=== PATIENT | female | born 2000 | race Caucasian/White ===

== ENCOUNTER 2022-02-28 08:21 | Emergency (ER) | payer OTHER ==
--- NOTE | 2022-02-28 08:55 | ED Physician Documentation ---
PD HPI NVD - Stated complaint Stated Complaint: N/V - Chief complaint Chief Complaint: Abd Pain - History obtained from History obtained from: Patient - History of Present Illness Timing - onset: How many months ago (1 to 12/02) Timing - duration: Months Timing - details: Gradual onset, Still present, Waxing and waning Associated symptoms: No: Fever, Abdominal pain, Dysuria, Vaginal bleeding, Vaginal dc Contributing factors: Other (11 weeks . Had initial visit at 8 weeks [place], but then moved here and not had [employer] appt as yet. Having nausea and less appetite the past month and more the past severral days, with frequent vomtiing. No hematemesis.). No: Sick contact, Bad food Improved by: No: Vomiting Worsened by: Eating Similar symptoms before: Has not had sx before Recently seen: Clinic (3 weeks ago with Rx for ZOfran given that lasted just a few days.) Review of Systems Constitutional: denies: Fever, Chills Nose: denies: Rhinorrhea / runny nose, Congestion Throat: denies: Sore throat Respiratory: denies: Cough GI: reports: Nausea, Vomiting. denies: Abdominal Pain, Diarrhea : reports: Now EGA (11). denies: Dysuria, Frequency, Discharge, Vaginal bleeding Neurologic: reports: Generalized weakness. denies: Near syncope PD PAST MEDICAL HISTORY - Past Medical History Cardiovascular: None Respiratory: None Endocrine/Autoimmune: None - Present Medications Home Medications: Ambulatory Orders Medication Instructions Recorded Confirmed Doxylamine Succinate [Unisom Sleep 25 mg PO BID #60 tablet 02/28/22 Aid] Famotidine [Pepcid] 20 mg PO DAILY 30 Days #30 tablet 02/28/22 Ondansetron Odt [Zofran] 4 mg TL Q6H PRN #25 tablet 02/28/22 Pyridoxine HCl (Vitamin B6) 250 mg PO BID #60 tablet 02/28/22 [Vitamin B-6] - Allergies Allergies/Adverse Reactions: Allergies Allergy/AdvReac Type Severity Reaction Status Date / Time No Known Drug Allergies Allergy Verified 02/28/22 08:27 PD ED PE NORMAL - Vitals Vital signs reviewed: Yes - General General: Alert and oriented X 3, No acute distress, Well developed/nourished - Neck Neck: Supple, no meningeal sign, No adenopathy - Cardiac Cardiac: No murmur. No: RRR (regular but tachycardic) - Respiratory Respiratory: Clear bilaterally - Abdomen Abdomen: Soft, Non tender, Other (gravid to about estimated EGA with fundus just felt above symphysis. Bedside U?S showing normal IUP size c/w dates with good FHB at 130 and movement. ) Results - Vitals Vitals: Vital Signs - 24 hr 02/28/22 02/28/22 10:31 11:15 Heart Rate 63 83 Respiratory 14 16 Rate Blood Pressure 125/78 123/69 O2 Saturation 100 100 Oxygen O2 Source Room air - Labs Labs: Laboratory Tests 02/28/22 02/28/22 02/28/22 08:31 09:21 09:21 WBC 10.9 H RBC 4.69 Hgb 13.3 Hct 39.4 MCV 84.0 MCH 28.4 MCHC 33.8 RDW 12.6 Plt Count 353 MPV 9.1 Neut # (Auto) 8.6 H Lymph # (Auto) 1.5 Josephine # (Auto) 0.7 Eos # (Auto) 0.0 Baso # (Auto) 0.0 Absolute Nucleated RBC 0.00 Nucleated RBC % 0.0 Sodium 133 L Potassium 3.3 L Chloride 99 L Carbon Dioxide 22 Anion Gap 12.0 BUN 9 Creatinine 0.7 Estimated GFR (MDRD) 108 Glucose 96 Calcium 9.3 Magnesium 2.0 Total Bilirubin 0.6 AST 18 ALT 18 Alkaline Phosphatase 59 Total Protein 8.9 H Albumin 4.2 Globulin 4.7 H Albumin/Globulin Ratio 0.9 L Lipase 32 Urine Color YELLOW Urine Clarity CLOUDY Urine pH 6.0 Ur Specific Blanco 1.025 Urine Protein 30 H Urine Glucose (UA) NEGATIVE Urine Ketones >=80 H Urine Occult Blood SMALL H Urine Nitrite NEGATIVE Urine Bilirubin NEGATIVE Urine Urobilinogen 0.2 (NORMAL) Ur Leukocyte Esterase SMALL H Urine RBC 0-5 Urine WBC 4-5 Ur Squamous Epith Cells MANY Squamous H Urine Bacteria Many H Ur Microscopic Review INDICATED Urine Culture Comments NOT INDICATED PD MEDICAL DECISION MAKING - ED course Complexity details: reviewed results (bedside U/S showing IUP with size c/w dates and good FHB and movement. ), re-evaluated patient (she feels much better with fluids and meds in ER.), considered differential (seems hyperemesis with . May have element of gastritis from persistent vomiting. ), d/w patient Departure - Departure Disposition: 01 Home, Self Care Clinical Impression: Nausea and vomiting in prior to 22 weeks gestation, Dehydration Qualifiers: Weeks of gestation: 11 weeks Qualified Code(s): Z3A.11 - 11 weeks gestation of Condition: Stable Record reviewed to determine appropriate education?: Yes Instructions: ED Preg Morning Sickness Follow-Up: [facility] [Provider Group] [facility] [Provider Group] Prescriptions: Famotidine [Pepcid] 20 mg PO DAILY 30 Days #30 tablet Doxylamine Succinate [Unisom Sleep Aid] 25 mg PO BID #60 tablet Pyridoxine HCl (Vitamin B6) [Vitamin B-6] 250 mg PO BID #60 tablet Ondansetron Odt [Zofran] 4 mg TL Q6H PRN #25 tablet PRN Reason: Nausea / Vomiting Comments: Small frequent fluids and bland food initially. Progress diet as tolerated. Vitamin B6 twice daily for the next several weeks to a month. Use doxylamine twice daily for nausea. To that add ondansetron every 4-6 hours if needed for worse nausea and vomiting. Your stomach likely has irritation from the persistent symptoms so add famotidine acid reducing medicine daily for the next month. These are all okay in and are actually considered first-line treatments by the [employer]COG ([employer] OF specialty group). [place] and otherwise [employer] clinic for care. If you are having difficulty getting in, see if your primary care can refer you otherwise. I transmitted your prescriptions to [facility] pharmacy in [place]. Discharge Date/Time: 02/28/22 11:16
[2022-02-28] MEDS ORDERED: SODIUM CHLORIDE 0.9% 1,000 ML IV STA ×2 (09:12)
[2022-02-28] MEDS ORDERED: ONDANSETRON 4 MG/2 ML VIAL IVP STA (09:12)
[2022-02-28] MEDS ORDERED: FAMOTIDINE 20 MG/2 ML VIAL IVP STA (09:12)
[2022-02-28 09:26] LABS: BASOPHILS % (AUTO) 0.2 %; EOSINOPHILS % (AUTO) 0.2 %; HCT - HEMATOCRIT 39.4 % (37.0-47.0); HGB - HEMOGLOBIN 13.3 g/dL (12.0-16.0); LYMPHOCYTES # (AUTO) 1.5 10^3/uL (1.5-3.5); LYMPHOCYTES % (AUTO) 13.4 %; MEAN CORPUSCULAR HEMOGLOBIN 28.4 pg (27.0-31.0); MEAN CORPUSCULAR HGB CONC 33.8 g/dL (32.0-36.0); MEAN PLATELET VOLUME 9.1 fL (7.9-10.8); MONOCYTES # (AUTO) 0.7 10^3/uL (0.0-1.0); MONOCYTES % (AUTO) 6.6 %; NEUTROPHILS # (AUTO) 8.6 10^3/uL (1.5-6.6); NEUTROPHILS % (AUTO) 79.1 %; PLT - PLATELET COUNT 353 10^3/uL (130-450); RED BLOOD COUNT 4.69 10^6/uL (4.20-5.40); RED CELL DISTRIBUTION WIDTH 12.6 % (12.0-15.0); WHITE BLOOD COUNT 10.9 x10^3/uL (4.8-10.8)
[2022-02-28 09:39] LABS: ALBUMIN 4.2 g/dL (3.2-5.5); ALBUMIN/GLOBULIN RATIO 0.9 (1.0-2.2); BILIRUBIN,TOTAL 0.6 mg/dL (0.2-1.0); CALCIUM 9.3 mg/dL (8.5-10.3); CREATININE 0.7 mg/dL (0.4-1.0); POTASSIUM 3.3 mmol/L (3.5-5.0); TOTAL PROTEIN 8.9 g/dL (6.7-8.2)
[2022-02-28 10:42] LABS: GLUCOSE, URINE (UA) NEGATIVE (NEGATIVE); KETONES,URINE (UA) >=80 mg/dL (NEGATIVE); LEUKOCYTE ESTERASE, URINE SMALL (NEGATIVE); NITRITE,URINE NEGATIVE (NEGATIVE); OCCULT BLOOD,URINE SMALL (NEGATIVE); PROTEIN,URINE 30 mg/dL (NEGATIVE); UROBILINOGEN,URINE 0.2 (NORMAL) E.U./dL (NORMAL)
[2022-02-28 10:43] LABS: CLARITY,URINE CLOUDY (CLEAR)
[2022-02-28 10:46] LABS: BILIRUBIN,URINE NEGATIVE (NEGATIVE); ICTOTEST,URINE NEGATIVE
[2022-02-28 10:54] LABS: BACTERIA,URINE Many /HPF (None Seen); RBC,URINE 0-5 /HPF (0-5); SQUAMOUS EPITHELIAL CELL,UR MANY Squamous (<= Few)
[2022-02-28 11:16] VITALS: BP 123/69
== END 2022-02-28 11:16 | disposition home or self-care (01) ==
LOC: ED 08:21
DX: O21.0 Mild hyperemesis gravidarum (principal); Z3A.11 11 weeks gestation of pregnancy; O99.281 Endocrine, nutritional and metabolic diseases complicating pregnancy, first trimester; E86.0 Dehydration
CPT/HCPCS: 36415; 80053; 81001; 81003; 83690; 83735; 85025; 87086; 96361; 96374; 99284